=== PATIENT | male | born 1955 | race Caucasian/White ===

== ENCOUNTER 2019-08-10 21:24 | Emergency (ER) | payer OTHER ==
[~2019-08-10] VITALS: Ht 177.8 cm; Wt 86.2 kg
[~2019-08-10 21:24] MED LIST: NOHOMEMEDICATIONS; ZOFRAN4 MG PO
[2019-08-10 21:59] LABS: ABSOLUTE BASOPHILS 0.1 thou/uL (0.0-0.2); ABSOLUTE EOSINOPHILS 0.3 thou/uL (0.0-0.7); ABSOLUTE LYMPHOCYTES 2.1 thou/uL (0.8-5.3); BASOPHILS 0.5 %; EOSINOPHILS 2.3 %; HEMATOCRIT 44.5 % (42.0-52.0); HEMOGLOBIN 15.3 gm/dL (14.0-18.0); LYMPHOCYTES 18.1 %; MCH 30.8 pg (26.0-34.0); MCHC 34.4 g/dL (28.0-37.0); MCV 89.4 fL (80.0-100.0); MONOCYTES 8.6 %; MPV 7.1 fl. (7.2-11.1); NUCLEATED RBCS 0 /100WBC; PLATELET COUNT* 281 thou/uL (150-400); POLYS 70.5 %; RBC 4.98 mil/uL (4.50-6.00); RDW-CV 13.2 % (10.5-14.5); WBC 11.4 thou/uL (4.0-11.0)
[2019-08-10 22:07] LABS: CALCIUM 8.2 mg/dL (8.5-10.1); CREATININE 1.1 mg/dL (0.6-1.3); POTASSIUM 3.9 mmol/L (3.5-5.1)
[2019-08-10 22:11] LABS: ALBUMIN 3.7 g/dL (3.4-5.0); TOTAL BILIRUBIN 0.2 mg/dL (<0.1-1.0); TOTAL PROTEIN 7.1 g/dL (6.4-8.2)
[2019-08-10] MEDS ORDERED: ONDANSETRON ODT4 MG PO (23:23)
[2019-08-10 23:35] LABS: URINE BILIRUBIN NEGATIVE (Negative); URINE BLOOD NEGATIVE (Negative); URINE CLARITY CLEAR; URINE COLOR YELLOW; URINE GLUCOSE-RANDOM NEGATIVE (Negative); URINE KETONES NEGATIVE (Negative); URINE LEUKOCYTES-REFLEX NEGATIVE (Negative); URINE NITRITE-REFLEX NEGATIVE (Negative); URINE PROTEIN NEGATIVE (Negative); URINE SPECIFIC GRAVITY <= 1.005 (1.005-1.030); URINE UROBILINOGEN 0.2 E.U./dl (0.2-1.0)
[2019-08-10 23:53] VITALS: BP 132/70
--- NOTE | 2019-08-11 13:49 | EKG ---
[place] [address] ELECTROCARDIOGRAM REPORT Name: CHARISSE ZHU [id number] Admission: 08/10/19 Attend Phys: Discharge: 08/11/19 Date of : 53 Report #: [id number] THIS REPORT FOR: //name// [facility] ED Test Date: 2019-08-10 Test Time: 21:51:44 Pat Name: CHARISSE ZHU Department: Room: Gender: M Fitness/Wellness Director: : 1955 Requested By: Femi Vidal Order Number: [id number] MD: Charisse Sosa Measurements Intervals [place] Rate: 83 P: 36 HI: 163 QRS: 13 QRSD: 94 T: 27 QT: 370 QTc: 435 Interpretive Statements Sinus rhythm poor r wave progression Baseline wander in lead(s) V1,V4,V5,V6 No previous ECG available for comparison Electronically Signed On 08-11-2019 13:48:30 PHOTO LAB TECHNICIAN by Charisse Sosa [email or web address] <ELECTRONICALLY SIGNED> By: Charisse Sosa MD, [facility] 08/11/19 1348 [id number] 50 Charisse Sosa MD, FACC /EPI
== END 2019-08-11 00:10 | disposition home or self-care (01) ==
LOC: M.ERS 21:24
PROVIDERS: Physician Assistant
DX: R11.2 Nausea with vomiting, unspecified (principal); R19.7 Diarrhea, unspecified; R10.33 Periumbilical pain; R10.13 Epigastric pain; Z88.0 Allergy status to penicillin; Z88.2 Allergy status to sulfonamides; Z88.8 Allergy status to other drugs, medicaments and biological substances; Z88.1 Allergy status to other antibiotic agents